=== PATIENT | male | born 1980 ===

== ENCOUNTER 2022-12-14 08:52 | Outpatient (CLI) | payer OTHER | END 2022-12-14 09:02 | disposition home or self-care (01) | LOC: RAD 08:52 | PROVIDERS: ATTEND Specialist | DX: R51.9 Headache, unspecified (principal); M62.838 Other muscle spasm; Z13.1 Encounter for screening for diabetes mellitus; Z12.5 Encounter for screening for malignant neoplasm of prostate; Z12.11 Encounter for screening for malignant neoplasm of colon; Z13.220 Encounter for screening for lipoid disorders; Z13.21 Encounter for screening for nutritional disorder; Z13.29 Encounter for screening for other suspected endocrine disorder ==

== ENCOUNTER → 2022-12-14 | Outpatient (CLI) | payer OTHER | END | disposition home or self-care (01) | LOC: LAB 10:20 | PROVIDERS: ATTEND Specialist | DX: R19.5 Other fecal abnormalities (principal); Z13.1 Encounter for screening for diabetes mellitus; Z12.5 Encounter for screening for malignant neoplasm of prostate; Z12.11 Encounter for screening for malignant neoplasm of colon; Z13.220 Encounter for screening for lipoid disorders; Z13.21 Encounter for screening for nutritional disorder; Z13.29 Encounter for screening for other suspected endocrine disorder ==

== ENCOUNTER 2023-12-19 09:29 | Outpatient (CLI) | payer OTHER | END 2023-12-19 09:38 | disposition home or self-care (01) | LOC: TOM 09:29 | PROVIDERS: ATTEND Specialist | DX: G89.11 Acute pain due to trauma (principal) ==